=== PATIENT | female | born 1955 | race Caucasian/White ===

== ENCOUNTER 2016-08-25 08:00 | Outpatient (CLI) | payer BC | END 2016-08-25 08:01 | disposition home or self-care (01) | DX: E11.9 Type 2 diabetes mellitus without complications (principal); E78.4 Other hyperlipidemia; E55.9 Vitamin D deficiency, unspecified; Z79.899 Other long term (current) drug therapy ==

== ENCOUNTER 2016-12-17 13:59 | Outpatient (CLI) | payer BC | END 2016-12-17 14:00 | disposition home or self-care (01) | DX: Z12.31 Encounter for screening mammogram for malignant neoplasm of breast (principal) ==

== ENCOUNTER 2017-08-27 12:53 | Outpatient (CLI) | payer BC ==
--- NOTE | 2017-08-27 15:40 | XRAY Report ---
DATE OF SERVICE: 08/27/2017 THREE VIEW LUMBAR SPINE: 08/27/2017 CLINICAL INDICATION: Pain. COMPARISON: 04/13/2016. FINDINGS: AP, lateral, coned down views of the lumbar spine demonstrate stable degenerative changes. There is degenerative anterolisthesis of L4 on L5 by approximately 5 mm. There is no evidence of interval compression fracture. Postoperative changes in the abdomen are noted. The bowel gas pattern is unremarkable. IMPRESSION: MODERATE DEGENERATIVE CHANGES, WITH DEGENERATIVE ANTEROLISTHESIS OF L4 ON L5 BY 5 MM. NO EVIDENCE OF INTERVAL FRACTURE. TD: 08/27/2017 16:39
--- NOTE | 2017-08-27 15:42 | XRAY Report ---
DATE OF SERVICE: 08/27/2017 LEFT HIP AND PELVIS: 08/27/2017 CLINICAL INDICATION: Left hip pain. COMPARISON: 04/13/2016. FINDINGS: Frontal view of the hips and pelvis and frogleg lateral view of the left hip demonstrate stable mild osteoarthritis of the left hip. There is no evidence of fracture or dislocation. No radiopaque foreign body is seen in the soft tissues. IMPRESSION: STABLE MILD LEFT HIP OSTEOARTHRITIS. TD: 08/27/2017 16:41
== END 2017-08-27 12:54 | disposition home or self-care (01) ==
LOC: DI 12:53
PROVIDERS: ATTEND Family Medicine
DX: M54.5 Low back pain (principal); M25.552 Pain in left hip; M16.12 Unilateral primary osteoarthritis, left hip
CPT/HCPCS: 72100

== ENCOUNTER 2018-01-25 12:47 | Outpatient (CLI) | payer BC ==
--- NOTE | 2018-01-26 13:40 | Mammography Report ---
Procedure Date: 01/25/2018 Accession Number: [id number] / [id number] Procedure: GEOVANI - Screening Mammo Dig Bilat CPT Code: FULL RESULT: EXAM: Screening Mammo Dig Bilat DATE: 01/25/2018 1:24 PM CLINICAL HISTORY: 62-year-old with family history of breast cancer for screening COMPARISON: 12/17/2016, 09/05/2015, 07/10/2014, 04/18/2013, 04/22/2012, 03/20/2011, 04/29/2010 TECHNIQUE: Bilateral CC and MLO views were obtained. FINDINGS: The breasts demonstrate diffuse fatty replacement bilaterally. Coarse and punctate, typically benign calcifications are present. No suspicious masses, clustered microcalcifications, or regions of architectural distortion are identified. IMPRESSION: Benign findings RECOMMENDATION: Routine annual screening unless otherwise clinically indicated. BIRADS CATEGORY 2: Benign findings STANDARD QUALIFYING STATEMENTS: 1. This examination was reviewed with the aid of Computer-Aided Detection (CAD). 2. A negative or benign imaging report should not delay biopsy if clinically suspicious findings are present. Consider surgical consultation if warrented. More than 5% of cancers are not identified by imaging. 3. Dense breasts may obscure an underlying neoplasm.
== END 2018-01-25 12:48 | disposition home or self-care (01) ==
LOC: DI 12:47
PROVIDERS: ATTEND Family Medicine
DX: Z12.31 Encounter for screening mammogram for malignant neoplasm of breast (principal); Z80.3 Family history of malignant neoplasm of breast
CPT/HCPCS: 77067

== ENCOUNTER 2019-02-04 16:05 | Outpatient (CLI) | payer SELFPAY | END 2019-02-04 16:06 | disposition EMS.NT | LOC: EMS 16:05 | PROVIDERS: ATTEND Surgery | DX: R45.89 Other symptoms and signs involving emotional state (principal) ==

== ENCOUNTER 2019-02-06 09:57 | Emergency (ER) | payer BC ==
--- NOTE | 2019-02-06 11:05 | ED Physician Documentation ---
PD HPI NVD - Stated complaint Stated Complaint: CONSTIPATION - Chief complaint Chief Complaint: Abd Pain - History obtained from History obtained from: Patient, Family () - History of Present Illness Timing - onset: How many days ago (few days of feeling pressure/pain at rectum with feeling of needing BM. Has had couple of small firm hard stools ("deer turds") at most. No diffuse abd pain.) Timing - duration: Days (has had constipation for several days to a week, with small pellets of hard stool out at a time, with straining. Now with feeling of rectal pain, stool "half out" at rectum, and some traces of red blood with wiping.) Timing - details: Gradual onset Associated symptoms: Abdominal pain (lower abd cramping intermittent. Main pain is at the rectum.), Loss of appetite. No: Fever, Chest pain, Weight loss Contributing factors: No: Sick contact, Bad food, Travel Improved by: BM Worsened by: Eating Similar symptoms before: Diagnosis (constipation) Recently seen: Not recently seen Review of Systems Constitutional: denies: Fever, Chills, Myalgias Nose: denies: Rhinorrhea / runny nose, Congestion Throat: denies: Sore throat Cardiac: denies: Chest pain / pressure Respiratory: denies: Cough GI: reports: Abdominal Pain (lower abd cramping; mostly rectal pain), Nausea, Constipation. denies: Vomiting, Diarrhea : denies: Dysuria, Frequency Musculoskeletal: denies: Neck pain, Back pain Neurologic: reports: Generalized weakness. 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 HEENT: Tonsil/Adenoidectomy - Present Medications Home Medications: Ambulatory Orders Medication Instructions Recorded Confirmed Diazepam [Valium] 10 mg PO PRN 09/10/13 03/06/15 Losartan [Cozaar] 100 mg PO DAILY 09/10/13 03/06/15 Nebivolol HCl [Bystolic] 5 mg PO DAILY 09/10/13 03/06/15 hydroCHLOROthiazide [Hydrodiuril] 25 mg PO DAILY 09/10/13 03/06/15 oxyCODONE/ACET 5/325 [Percocet 5 1 tab PO Q6HR 09/10/13 03/06/15 mg/325 mg] Azithromycin [Zithromax] 250 mg PO ONCE #6 tablet 03/06/15 Docusate Sodium 100 mg PO DAILY #30 capsule 02/06/19 Glycerin Adult Supp [address] DAILY PRN #15 supp 02/06/19 - Allergies Allergies/Adverse Reactions: Allergies Allergy/AdvReac Type Severity Reaction Status Date / Time codeine Allergy Intermediate Itching Verified 02/06/19 10:11 latex Allergy Intermediate Rash Verified 02/06/19 10:11 Penicillins Allergy Intermediate Emesis Verified 02/06/19 10:11 Sulfa (Sulfonamide Allergy Intermediate Emesis Verified 02/06/19 10:11 Antibiotics) eggs Allergy Intermediate Emesis Uncoded 02/06/19 10:11 - Social History Does the pt smoke?: Yes Smoking Status: Current every day smoker Does the pt drink ETOH?: No Does the pt have substance abuse?: No - Immunizations Immunizations are current?: Yes - POLST Patient has POLST: No PD ED PE NORMAL - Vitals Vital signs reviewed: Yes - General General: Alert and oriented X 3, Well developed/nourished, Other (appears very uncomfortable. Initially sitting in bathroom, grunting hard for BM to no avail. ) - Neck Neck: Supple, no meningeal sign, No adenopathy - Cardiac Cardiac: RRR, No murmur - Respiratory Respiratory: Clear bilaterally - Abdomen Abdomen: Soft, Non distended, No organomegaly, Other. No: Normal bowel sounds (increased) - Female Female : Deferred - Rectal Rectal: Other (rectal showing baseball sized impaction of hard stool from rectum. Some trace of red mucous along edge of rectum. ) - Back Back: No CVA TTP - Derm Derm: Normal color, Warm and dry - Extremities Extremities: No tenderness to palpate, Normal ROM s pain, No edema, No calf tenderness / cord - Neuro Neuro: Alert and oriented X 3, No motor deficit, Normal speech Results - Vitals Vitals: Vital Signs - 24 hr 02/06/19 02/06/19 02/06/19 10:07 12:04 13:57 Temperature 36.9 C Heart Rate 88 70 73 Respiratory 18 15 13 Rate Blood Pressure 138/81 H 133/83 H 129/81 H O2 Saturation 100 100 100 Oxygen O2 Source Room air - Labs Labs: Laboratory Tests 02/06/19 02/06/19 11:26 11:26 WBC 5.2 RBC 4.97 Hgb 15.4 Hct 47.2 H MCV 95.0 MCH 31.0 MCHC 32.6 RDW 12.2 Plt Count 142 MPV 10.4 Neut # (Auto) 4.0 Lymph # (Auto) 1.0 L [place] # (Auto) 0.2 Eos # (Auto) 0.0 Baso # (Auto) 0.0 Absolute Nucleated RBC 0.00 Nucleated RBC % 0.0 Sodium 137 Potassium 4.0 Chloride 99 L Carbon Dioxide 24 Anion Gap 14.0 H BUN 22 H Creatinine 0.8 Estimated GFR (MDRD) 73 L Glucose 179 H Calcium 9.8 Total Bilirubin 0.9 AST 32 ALT 28 Alkaline Phosphatase 44 Total Protein 7.3 Albumin 4.5 Globulin 2.8 Albumin/Globulin Ratio 1.6 Lipase 28 PD MEDICAL DECISION MAKING - ED course Complexity details: considered differential (digital disimpaction of hard stool in vault, was uncomfortable, but she feels much better with it out. Enema done to soften stool up higher, though not much stool out further in ER. Also given mag citrate. Discharged home wiht nontender abd exam, feeling improved rectal pain, and predict will have further BMs at home. ), d/w patient Departure - Departure Disposition: 01 Home, Self Care Clinical Impression: Fecal impaction in rectum Constipation Qualifiers: Constipation type: slow transit constipation Qualified Code(s): K59.01 - Slow transit constipation Condition: Stable Record reviewed to determine appropriate education?: Yes Instructions: ED Constipation Follow-Up: Clement Young MD [Primary Care Provider] - Prescriptions: Docusate Sodium 100 mg PO DAILY #30 capsule Glycerin Adult Supp [address] DAILY PRN #15 supp PRN Reason: Constipation Comments: Stay well-hydrated. Use docusate stool softener once or twice daily for the next several days to week. If you do feel there is stool at the rectum area again, use a glycerin suppository and see if that helps soften it to get it out. Recheck if recurrent problems. Discharge Date/Time: 02/06/19 14:15
[2019-02-06] MEDS ORDERED: MORPHINE 2 MG/ML CARPUJECT IVP STA (11:26)
[2019-02-06] MEDS ORDERED: MINERAL OIL ENEMA 133 ML BOTTLE RC STA (11:26)
[2019-02-06] MEDS ORDERED: KETOROLAC 15 MG/ML VIAL IVP STA (11:26)
[2019-02-06] MEDS ORDERED: MAGNESIUM CITRATE 296 ML BOTTLE PO STA (11:26)
[2019-02-06] MEDS ORDERED: SODIUM CHLORIDE 0.9% 1,000 ML IV ONE (11:26)
[2019-02-06 12:07] LABS: BASOPHILS % (AUTO) 0.4 %; EOSINOPHILS % (AUTO) 0.4 %; HGB - HEMOGLOBIN 15.4 g/dL (12.0-16.0); LYMPHOCYTES % (AUTO) 18.5 %; MEAN CORPUSCULAR HGB CONC 32.6 g/dL (32.0-36.0); MEAN PLATELET VOLUME 10.4 fL (7.9-10.8); MONOCYTES # (AUTO) 0.2 10^3/uL (0.0-1.0); MONOCYTES % (AUTO) 3.1 %; NEUTROPHILS % (AUTO) 77.2 %; PLT - PLATELET COUNT 142 10^3/uL (130-450); RED BLOOD COUNT 4.97 10^6/uL (4.20-5.40); RED CELL DISTRIBUTION WIDTH 12.2 % (12.0-15.0); WHITE BLOOD COUNT 5.2 x10^3/uL (4.8-10.8)
[2019-02-06 12:23] LABS: ALBUMIN 4.5 g/dL (3.2-5.5); ALBUMIN/GLOBULIN RATIO 1.6 (1.0-2.2); BILIRUBIN,TOTAL 0.9 mg/dL (0.2-1.0); CALCIUM 9.8 mg/dL (8.5-10.3); CREATININE 0.8 mg/dL (0.4-1.0); TOTAL PROTEIN 7.3 g/dL (6.7-8.2)
[2019-02-06 13:58] VITALS: BP 129/81
== END 2019-02-06 14:15 | disposition home or self-care (01) ==
LOC: ED 09:57
DX: K59.01 Slow transit constipation (principal); I10 Essential (primary) hypertension; F17.200 Nicotine dependence, unspecified, uncomplicated
CPT/HCPCS: 36415; 80053; 83690; 85025; 96361; 96374; 99283; A9270

== ENCOUNTER 2020-06-13 12:32 | Outpatient (CLI) | payer BC ==
--- NOTE | 2020-06-20 15:49 | Mammography Report ---
BILATERAL DIGITAL SCREENING MAMMOGRAM 3D/2D: 06/13/2020 CLINICAL: Routine screening. Comparison is made to exams dated: 01/25/2018 mammogram, 12/17/2016 mammogram, 09/05/2015 mammogram, mammogram, and 04/18/2013 mammogram - [facility]. The tissue of both breasts is predominantly fatty. There is a 1.3 cm oval equal density focal asymmetry with a circumscribed margin which appears to be within the skin of the left breast at 8 o'clock. This is increased in size. No other significant masses, calcifications, or other findings are seen in either breast. IMPRESSION: INCOMPLETE: NEEDS ADDITIONAL IMAGING EVALUATION The 1.3 cm oval focal asymmetry which appears to be within the skin of the left breast is increasing in size. This resembles a sebaceous cyst or mole and is indeterminate. Skin malignancy or breast neop lasm felt to be less likely. Additional views with possible ultrasound are recommended. This exam was interpreted at Station ID: [id number]. NOTE: For mammograms, a report in lay terms will be sent to the patient. Approximately 15% of breast malignancies will not be visualized mammographically. In the management of a palpable breast mass, a negative mammogram must not discourage biopsy of a clinically suspicious lesion. Electronically Signed By: Nadir Power M.D. slc/:06/20/2020 10:48:07 ACR BI-RADS Category 0: Incomplete 3340F PARENCHYMAL PATTERN: (F) - The breast(s) demonstrate(s) diffuse fatty replacement. BI-RADS CATEGORY: (0) - 0 Mammo and US [id number] Immediate follow-up LATERALITY: (B)
== END 2020-06-13 12:33 | disposition home or self-care (01) ==
LOC: DI.N 12:32
PROVIDERS: ATTEND Family Medicine
DX: Z12.31 Encounter for screening mammogram for malignant neoplasm of breast (principal); N64.89 Other specified disorders of breast
CPT/HCPCS: 77063; 77067

== ENCOUNTER 2020-10-07 11:24 | Outpatient (CLI) | payer BC ==
--- NOTE | 2020-10-08 13:38 | Mammography Report ---
UNILATERAL LEFT DIGITAL DIAGNOSTIC MAMMOGRAM 3D/2D: 10/07/2020 CLINICAL: Additional evaluation requested from prior study. Short term follow up for the left breast. Comparison is made to exams dated: 06/13/2020 mammogram, 01/25/2018 mammogram, 12/17/2016 mammogram, mammogram, 07/10/2014 mammogram, and 04/18/2013 mammogram - [facility]. The tissue of left breast is predominantly fatty. Redemonstration of previously described 1.3 cm oval high density focal asymmetry with a circumscribed margin within the skin of the left breast at 8 o'clock. This is confirmed on today's additional vie ws. No other significant masses or calcifications are seen in the breast. IMPRESSION: BENIGN The 1.3 cm oval high density focal asymmetry within the left breast is consistent with a skin lesion and is benign. It appears to be an enlarged sebaceous cyst on exam. Recommend clinical follow up o f this skin lesion. There is no mammographic evidence of malignancy. A 1 year screening mammogram is recommended. Findings and recommendations were conveyed to the patient during today's evaluation. This exam was interpreted at Station ID: [id number]. NOTE: For mammograms, a report in lay terms will be sent to the patient. Approximately 15% of breast malignancies will not be visualized mammographically. In the management of a palpable breast mass, a negative mammogram must not discourage biopsy of a clinically suspicious lesion. Electronically Signed By: Toney Flores M.D. aty/:10/07/2020 12:09:36 ACR BI-RADS Category 2: Benign Finding(s) 3342F PARENCHYMAL PATTERN: (F) - The breast(s) demonstrate(s) diffuse fatty replacement. BI-RADS CATEGORY: (2) - 2 RECOMMENDATION: (ANNUAL) - Recommend routine annual screening mammography. [id number] 1 year screening LATERALITY: (B)
== END 2020-10-07 11:25 | disposition home or self-care (01) ==
LOC: DI 11:24
PROVIDERS: ATTEND Family Medicine
DX: R92.8 Other abnormal and inconclusive findings on diagnostic imaging of breast (principal); N64.89 Other specified disorders of breast

== ENCOUNTER 2020-12-26 03:33 | Outpatient (CLI) | payer BC | END 2020-12-26 03:34 | disposition critical access hospital (66) | LOC: EMS 03:33 | DX: R47.81 Slurred speech (principal); R29.810 Facial weakness; R29.91 Unspecified symptoms and signs involving the musculoskeletal system | CPT/HCPCS: A0425; A0429 ==

== ENCOUNTER 2020-12-26 03:49 | Emergency (ER) | payer BC ==
--- NOTE | 2020-12-26 04:13 | ED Physician Documentation ---
History of Present Illness - Stated complaint Stated Complaint: R SIDE WEAKNESS - Chief complaint Chief Complaint: Neuro - History obtained from History obtained from: Patient, EMS - Additonal information Additional information: Patient is brought to the emergency department by EMS for chief complaint of weakness and confusion. The patient apparently was last known to be well around 2200 when she went to bed has been reported to medics that at 3:00 this morning, the patient woke up and seemed unable to get out of bed, due to weakness. The patient has significant right-sided deficits that are residual since CVA in 2018, but is reported to be able to get around the house and mostly do things for herself. There is some question of whether the right-sided deficits are worse tonight versus generalized weakness. The patient states that she is able to use her right hand somewhat, but that she always holds the arm against her body and any flexed position at the elbow. Medics report that in route, the patient has been somewhat confused with repetitive questioning and some answers that are inappropriate to the question asked. Patient states she feels that she is mentally clear. She denies any recent illnesses. No other symptoms besides the weakness. No fever or chills. No chest pain or shortness of breath. No abdominal pain, nausea vomiting, or dysuria. No other complaints at this time. Patient is not sure whether her symptoms are improving or not. Review of Systems Ten Systems: 10 systems reviewed and negative Constitutional: reports: Reviewed and negative Eyes: reports: Reviewed and negative Ears: reports: Reviewed and negative Nose: reports: Reviewed and negative Throat: reports: Reviewed and negative Cardiac: reports: Reviewed and negative Respiratory: reports: Reviewed and negative GI: reports: Reviewed and negative : reports: Reviewed and negative Skin: reports: Reviewed and negative Musculoskeletal: reports: Reviewed and negative Neurologic: reports: Generalized weakness, Focal weakness, Confused Psychiatric: reports: Reviewed and negative Endocrine: reports: Reviewed and negative Immunocompromised: reports: Reviewed and negative PD PAST MEDICAL HISTORY - Past Medical History Cardiovascular: Hypertension Neuro: Other GI: Chronic constipation Psych: Anxiety, Panic attacks Musculoskeletal: Osteoarthritis - Past Surgical History Past Surgical History: Yes 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 HEENT: Tonsil/Adenoidectomy - Present Medications Home Medications: Ambulatory Orders Medication Instructions Recorded Confirmed Diazepam [Valium] 10 mg PO PRN 09/10/13 03/06/15 Losartan [Cozaar] 100 mg PO DAILY 09/10/13 03/06/15 Nebivolol HCl [Bystolic] 5 mg PO DAILY 09/10/13 03/06/15 hydroCHLOROthiazide [Hydrodiuril] 25 mg PO DAILY 09/10/13 03/06/15 oxyCODONE/ACET 5/325 [Percocet 5 1 tab PO Q6HR 09/10/13 03/06/15 mg/325 mg] Azithromycin [Zithromax] 250 mg PO ONCE #6 tablet 03/06/15 Docusate Sodium 100 mg PO DAILY #30 capsule 02/06/19 Glycerin Adult Supp [Glycerin 1 each [place] DAILY PRN #15 supp 02/06/19 Suppository] - Allergies Allergies/Adverse Reactions: Allergies Allergy/AdvReac Type Severity Reaction Status Date / Time codeine Allergy Intermediate Itching Verified 12/26/20 03:55 latex Allergy Intermediate Rash Verified 12/26/20 03:55 Penicillins Allergy Intermediate Emesis Verified 12/26/20 03:55 Sulfa (Sulfonamide Allergy Intermediate Emesis Verified 12/26/20 03:55 Antibiotics) eggs Allergy Intermediate Emesis Uncoded 12/26/20 03:55 - Social History Does the pt smoke?: Yes Smoking Status: Current every day smoker Does the pt drink ETOH?: No Does the pt have substance abuse?: No - Immunizations Immunizations are current?: Yes - POLST Patient has POLST: No PD ED PE NORMAL - Vitals Vital signs reviewed: Yes - General General: No acute distress, Well developed/nourished, Other (Alert and answers questions, but confused.) - HEENT HEENT: Atraumatic, PERRL, EOMI, Moist mucous membranes - Neck Neck: Supple, no meningeal sign - Cardiac Cardiac: RRR, No murmur, Strong equal pulses - Respiratory Respiratory: No respiratory distress, Clear bilaterally - Abdomen Abdomen: Soft, Non tender, Non distended - Derm Derm: Normal color, Warm and dry, No rash - Extremities Extremities: No deformity, No edema - Neuro Neuro: Other - Psych Psych: Normal mood, Normal affect PD ED PE EXPANDED - Free text exam Free text exam: Of the time,Neuro exam: Patient is alert and answers questions appropriately though occasionally displays confusion. There is no obvious aphasia with simple speaking, though reading the sentences and the NIH stroke scale exam is very difficult for the patient. She recognizes at least a couple of words in a sentence but mixes up the order and adds other words to create a completely different sentence. During the last 2 sentences, she simply seems to make up words. R arm unable to straighten, due to spastic weakness. 5- strength RUE vs 5+ strength LUE. RLE drifts, hits bed at 8 seconds. LUE no drift. 5+ strength dorsiflexion bilaterally. NIHSS score=7 Facial Palsy=1 R arm=2 R leg motor drift=2 Language/aphasia=1 Dysarthria=1 Results - Vitals Vitals: Oxygen O2 Source Nasal cannula - EKG (time done) 0517 Rate: Rate (enter#) (69) Rhythm: NSR, Normal P waves [place]: Normal Intervals: Normal NV, Other (IVCD) QRS: Normal Ischemia: Normal ST segments. No: T wave inversion Compare to prior EKG: Old EKG unavailable Computer interpretation: Agree with computer - Labs Labs: Laboratory Tests 12/26/20 12/26/20 12/26/20 05:33 05:33 05:33 WBC 3.8 L RBC 4.71 Hgb 15.3 Hct 44.0 MCV 93.4 MCH 32.5 H MCHC 34.8 RDW 12.3 Plt Count 151 MPV 9.7 Neut # (Auto) 1.7 Lymph # (Auto) 1.7 [place] # (Auto) 0.3 Eos # (Auto) 0.1 Baso # (Auto) 0.0 Absolute Nucleated RBC 0.00 Nucleated RBC % 0.0 PT 11.2 INR 1.0 Sodium 131 L Potassium 3.9 Chloride 97 L Carbon Dioxide 25 Anion Gap 9.0 BUN 9 Creatinine 0.6 Estimated GFR (MDRD) 101 Glucose 132 H Calcium 9.7 Total Bilirubin 0.5 AST 21 ALT 16 Alkaline Phosphatase 52 Troponin I High Sens Total Protein 6.8 Albumin 4.0 Globulin 2.8 Albumin/Globulin Ratio 1.4 Lipase 35 Urine Color Urine Clarity Urine pH Ur Specific [place] Urine Protein Urine Glucose (UA) Urine Ketones Urine Occult Blood Urine Nitrite Urine Bilirubin Urine Urobilinogen Ur Leukocyte Esterase Ur Microscopic Review Urine Culture Comments Nasal Adenovirus (PCR) Nasal B. parapertussis DNA (PCR) Nasal Coronavir 229E PCR Nasal Coronavir HKU1 PCR Nasal Coronavir NL63 PCR Nasal Coronavir OC43 PCR Nasal Enterovir/Rhinovir PCR Nasal Influenza B PCR Nasal Influenza A PCR Nasal Parainfluen 1 PCR Nasal Parainfluen 2 PCR Nasal Parainfluen 3 PCR Nasal Parainfluen 4 PCR Nasal RSV (PCR) Nasal B.pertussis DNA PCR Nasal C.pneumoniae (PCR) Navdeep Human Metapneumo PCR Nasal M.pneumoniae (PCR) Nasal SARS-CoV-2 (PCR) 12/26/20 12/26/20 12/26/20 05:33 06:02 11:05 WBC RBC Hgb Hct MCV MCH MCHC RDW Plt Count MPV Neut # (Auto) Lymph # (Auto) [place] # (Auto) Eos # (Auto) Baso # (Auto) Absolute Nucleated RBC Nucleated RBC % PT INR Sodium Potassium Chloride Carbon Dioxide Anion Gap BUN Creatinine Estimated GFR (MDRD) Glucose Calcium Total Bilirubin AST ALT Alkaline Phosphatase Troponin I High Sens < 2.3 L Total Protein Albumin Globulin Albumin/Globulin Ratio Lipase Urine Color STRAW Urine Clarity CLEAR Urine pH 7.0 Ur Specific [place] <=1.005 Urine Protein NEGATIVE Urine Glucose (UA) NEGATIVE Urine Ketones NEGATIVE Urine Occult Blood TRACE-INTA Urine Nitrite NEGATIVE Urine Bilirubin NEGATIVE Urine Urobilinogen 0.2 (NORMAL) Ur Leukocyte Esterase NEGATIVE Ur Microscopic Review NOT INDICATED Urine Culture Comments NOT INDICATED Nasal Adenovirus (PCR) NOT DETECTED Nasal B. parapertussis DNA (PCR) NOT DETECTED Nasal Coronavir 229E PCR NOT DETECTED Nasal Coronavir HKU1 PCR NOT DETECTED Nasal Coronavir NL63 PCR NOT DETECTED Nasal Coronavir OC43 PCR NOT DETECTED Nasal Enterovir/Rhinovir PCR NOT DETECTED Nasal Influenza B PCR NOT DETECTED Nasal Influenza A PCR NOT DETECTED Nasal Parainfluen 1 PCR NOT DETECTED Nasal Parainfluen 2 PCR NOT DETECTED Nasal Parainfluen 3 PCR NOT DETECTED Nasal Parainfluen 4 PCR NOT DETECTED Nasal RSV (PCR) NOT DETECTED Nasal B.pertussis DNA PCR NOT DETECTED Nasal C.pneumoniae (PCR) NOT DETECTED Navdeep Human Metapneumo PCR NOT DETECTED Nasal M.pneumoniae (PCR) NOT DETECTED Nasal SARS-CoV-2 (PCR) NOT DETECTED - Rads (name of study) CT head noncon Radiology: Final report received, EMP read indepedently, See rad report (old L MCA stroke; NAD) PD MEDICAL DECISION MAKING - ED course Complexity details: reviewed old records, reviewed results, re-evaluated patient, considered differential, d/w patient ED course: Patient was sent for noncontrast head CT stroke protocol, which showed a remote left MCA infarct but no acute intracranial infarct or hemorrhage. While CTA was being done, I spoke with Dr. Lizarraga of telestroke, and he stated the patient would not be a TPA candidate, and that unless the patient had a large vessel occlusion on CTA, he did not need to evaluate the patient by video. In this case, he recommended patient be worked up with MRI and potentially observed in the hospital. Patient was given a dose of aspirin. CTA showed potential obstruction of the left MCA, and as such, the patient was evaluated by Dr. Lizarraga. The patient was not a very clear historian, and was somewhat obstructed with answering questions. She ultimately stated that she did not Him's were any different than usual, and that she was to be left alone. At this point in time, I did speak with the neurologist privately, and he stated that the nature of this patient's symptoms did not indicate an acute MCA occlusion. However, since the patient has been somewhat unclear with regard to her symptoms, we have summoned her to come to the emergency department to pry provide some clarity. If the feels strongly that the patient is not at her baseline, then neurology may reconsider transfer of the patient if the patient is agreeable. At this point in time, the patient was signed out to Dr. Villalpando, pending 's report and final disposition. Departure - Departure Disposition: 07 Against Medical Advice Clinical Impression: Stroke-like symptoms, Dehydration Condition: Stable Instructions: ED Dehydration, ED Transient Ischemic Attack Follow-Up: Clement Young MD [Physician No Access] - Discharge Date/Time: 12/26/20 12:46
[2020-12-26] MEDS ORDERED: IOPAMIDOL-300 100 ML VIAL IVP ONE (05:16)
[2020-12-26] MEDS ORDERED: ASPIRIN CHEW 81 MG TABLET PO STA (05:28)
[2020-12-26] MEDS ORDERED: IOPAMIDOL-300 100 ML VIAL ONE (05:34)
[2020-12-26 05:40] LABS: BASOPHILS % (AUTO) 0.8 %; EOSINOPHILS # (AUTO) 0.1 10^3/uL (0.0-0.7); EOSINOPHILS % (AUTO) 1.9 %; HGB - HEMOGLOBIN 15.3 g/dL (12.0-16.0); LYMPHOCYTES # (AUTO) 1.7 10^3/uL (1.5-3.5); LYMPHOCYTES % (AUTO) 44.9 %; MEAN CORPUSCULAR HEMOGLOBIN 32.5 pg (27.0-31.0); MEAN CORPUSCULAR HGB CONC 34.8 g/dL (32.0-36.0); MEAN CORPUSCULAR VOLUME 93.4 fL (81.0-99.0); MEAN PLATELET VOLUME 9.7 fL (7.9-10.8); MONOCYTES # (AUTO) 0.3 10^3/uL (0.0-1.0); MONOCYTES % (AUTO) 7.4 %; NEUTROPHILS # (AUTO) 1.7 10^3/uL (1.5-6.6); PLT - PLATELET COUNT 151 10^3/uL (130-450); RED BLOOD COUNT 4.71 10^6/uL (4.20-5.40); RED CELL DISTRIBUTION WIDTH 12.3 % (12.0-15.0); WHITE BLOOD COUNT 3.8 x10^3/uL (4.8-10.8)
[2020-12-26 05:44] LABS: PT - PROTHROMBIN TIME 11.2 secs (9.9-12.6)
[2020-12-26 05:52] LABS: ALBUMIN/GLOBULIN RATIO 1.4 (1.0-2.2); BILIRUBIN,TOTAL 0.5 mg/dL (0.2-1.0); CALCIUM 9.7 mg/dL (8.5-10.3); CREATININE 0.6 mg/dL (0.4-1.0); POTASSIUM 3.9 mmol/L (3.5-5.0); TOTAL PROTEIN 6.8 g/dL (6.7-8.2)
[2020-12-26] MEDS ORDERED: SODIUM CHLORIDE 0.9% 1,000 ML IV STA (06:49)
--- NOTE | 2020-12-26 06:50 | ED Physician Documentation ---
PD HPI FOCAL NEURO - Stated complaint Stated Complaint: R SIDE WEAKNESS - Chief complaint Chief Complaint: Neuro - History obtained from History obtained from: Patient, Family - History of Present Illness Timing - onset: Enter time (299), Today Timing - duration: Hours Timing - details: Abrupt onset, Still present Severity of deficit: Moderate Weakness: Arm, Hand, Leg, Foot, Right Associated symptoms: Nausea / vomiting Contributing factors: positive: Vascular dz Baseline status: positive: Walker, Mildly confused Similar symptoms before: Diagnosis (CVA) Recently seen: Not recently seen - Additional information Additional information: 65-year-old female with a 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 She is usually able to get herself out of bed and go to the bathroom and get back into bed. She is usually conversant. This morning at 3 AM her noted her to be grunting and he went to assist with her he was able to help her up but she was not able to complete this task. The ambulance was summoned and the patient was transported the hospital and work-up was ensued including CTA of the head and neck. At shift change care of the patient is turned over to me by Dr. Shrestha. 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: Hysterectomy HEENT: Tonsil/Adenoidectomy - Present Medications Home Medications: Ambulatory Orders Medication Instructions Recorded Confirmed Diazepam [Valium] 10 mg PO PRN 09/10/13 03/06/15 Losartan [Cozaar] 100 mg PO DAILY 09/10/13 03/06/15 Nebivolol HCl [Bystolic] 5 mg PO DAILY 09/10/13 03/06/15 hydroCHLOROthiazide [Hydrodiuril] 25 mg PO DAILY 09/10/13 03/06/15 oxyCODONE/ACET 5/325 [Percocet 5 1 tab PO Q6HR 09/10/13 03/06/15 mg/325 mg] Azithromycin [Zithromax] 250 mg PO ONCE #6 tablet 03/06/15 Docusate Sodium 100 mg PO DAILY #30 capsule 02/06/19 Glycerin Adult Supp [Glycerin 1 each RI DAILY PRN #15 supp 02/06/19 Suppository] - Allergies Allergies/Adverse Reactions: Allergies Allergy/AdvReac Type Severity Reaction Status Date / Time codeine Allergy Intermediate Itching Verified 12/26/20 03:55 latex Allergy Intermediate Rash Verified 12/26/20 03:55 Penicillins Allergy Intermediate Emesis Verified 12/26/20 03:55 Sulfa (Sulfonamide Allergy Intermediate Emesis Verified 12/26/20 03:55 Antibiotics) eggs Allergy Intermediate Emesis Uncoded 12/26/20 03:55 - Social History Does the pt smoke?: Yes Smoking Status: Current every day smoker Does the pt drink ETOH?: No Does the pt have substance abuse?: No - Immunizations Immunizations are current?: Yes - POLST Patient has POLST: No PD ED PE NORMAL - Vitals Vital signs reviewed: Yes (Hypertensive) - General General: No acute distress, Well developed/nourished - HEENT HEENT: Atraumatic, PERRL - Respiratory Respiratory: No respiratory distress - Derm Derm: Normal color, Warm and dry, No rash NIHSS - Level of Consciousness Level of consciousness: (0) Alert, Keenly responsive LOC Questions: (0) Answers both Q's correct LOC Commands: (0) Performs both correctly - Gaze Best Gaze: (0) Normal - Visual Visual: (0) No loss - Facial Palsy Facial Palsy: (0) Normal, symmetrical movement - Motor Arms (both separate) Motor Arm (right): (1) Drift Motor Arm (left): (0) No drift - Motor Legs (both separate) Motor Leg (right): (1) Drift Motor Leg (left): (0) No drift - Limb Ataxia Limb Ataxia: (0) Absent - Sensory Sensory: (0) Normal - Best Language Best Language: (0) No aphasia - Dysarthria Dysarthria: (1) [id number] dysarthria - Extinction and Inattention (formally neg Extinction and inattention: (0) No abnormality - Total Score/Results Total Score/Result: 3 Results - Vitals Vitals: Vital Signs - 24 hr 12/26/20 12/26/20 12/26/20 04:03 05:23 05:30 Temperature 36.2 C L Heart Rate 59 L 67 63 Respiratory 18 16 19 Rate Blood Pressure 138/80 H 156/100 H 139/85 H O2 Saturation 98 99 97 12/26/20 12/26/20 12/26/20 06:01 06:30 07:00 Temperature Heart Rate 61 63 62 Respiratory 16 16 18 Rate Blood Pressure 131/52 H 119/98 H 124/80 O2 Saturation 97 99 96 12/26/20 12/26/20 12/26/20 07:30 08:00 08:30 Temperature 36.5 C Heart Rate 63 57 L 65 Respiratory 17 17 18 Rate Blood Pressure 130/77 142/86 H 132/84 H O2 Saturation 98 99 99 12/26/20 12/26/20 12/26/20 09:00 09:30 10:00 Temperature 36.5 C 36.5 C Heart Rate 66 63 63 Respiratory 20 16 16 Rate Blood Pressure 139/93 H 138/86 H 152/102 H O2 Saturation 98 97 97 12/26/20 12/26/20 12/26/20 10:30 11:00 11:30 Temperature 36.6 C 36.7 C 36.7 C Heart Rate 62 60 60 Respiratory 16 16 16 Rate Blood Pressure 150/89 H 140/89 H 134/87 H O2 Saturation 98 99 99 12/26/20 12:37 Temperature 36.5 C Heart Rate 62 Respiratory 19 Rate Blood Pressure 145/100 H O2 Saturation 100 Oxygen O2 Source Nasal cannula - Labs Labs: Laboratory Tests 12/26/20 12/26/20 12/26/20 05:33 05:33 05:33 WBC 3.8 L RBC 4.71 Hgb 15.3 Hct 44.0 MCV 93.4 MCH 32.5 H MCHC 34.8 RDW 12.3 Plt Count 151 MPV 9.7 Neut # (Auto) 1.7 Lymph # (Auto) 1.7 [place] # (Auto) 0.3 Eos # (Auto) 0.1 Baso # (Auto) 0.0 Absolute Nucleated RBC 0.00 Nucleated RBC % 0.0 PT 11.2 INR 1.0 Sodium 131 L Potassium 3.9 Chloride 97 L Carbon Dioxide 25 Anion Gap 9.0 BUN 9 Creatinine 0.6 Estimated GFR (MDRD) 101 Glucose 132 H Calcium 9.7 Total Bilirubin 0.5 AST 21 ALT 16 Alkaline Phosphatase 52 Troponin I High Sens Total Protein 6.8 Albumin 4.0 Globulin 2.8 Albumin/Globulin Ratio 1.4 Lipase 35 Urine Color Urine Clarity Urine pH Ur Specific [place] Urine Protein Urine Glucose (UA) Urine Ketones Urine Occult Blood Urine Nitrite Urine Bilirubin Urine Urobilinogen Ur Leukocyte Esterase Ur Microscopic Review Urine Culture Comments Nasal Adenovirus (PCR) Nasal B. parapertussis DNA (PCR) Nasal Coronavir 229E PCR Nasal Coronavir HKU1 PCR Nasal Coronavir NL63 PCR Nasal Coronavir OC43 PCR Nasal Enterovir/Rhinovir PCR Nasal Influenza B PCR Nasal Influenza A PCR Nasal Parainfluen 1 PCR Nasal Parainfluen 2 PCR Nasal Parainfluen 3 PCR Nasal Parainfluen 4 PCR Nasal RSV (PCR) Nasal B.pertussis DNA PCR Nasal C.pneumoniae (PCR) Nav[place] Human Metapneumo PCR Nasal M.pneumoniae (PCR) Nasal SARS-CoV-2 (PCR) 12/26/20 12/26/20 12/26/20 05:33 06:02 11:05 WBC RBC Hgb Hct MCV MCH MCHC RDW Plt Count MPV Neut # (Auto) Lymph # (Auto) [place] # (Auto) Eos # (Auto) Baso # (Auto) Absolute Nucleated RBC Nucleated RBC % PT INR Sodium Potassium Chloride Carbon Dioxide Anion Gap BUN Creatinine Estimated GFR (MDRD) Glucose Calcium Total Bilirubin AST ALT Alkaline Phosphatase Troponin I High Sens < 2.3 L Total Protein Albumin Globulin Albumin/Globulin Ratio Lipase Urine Color STRAW Urine Clarity CLEAR Urine pH 7.0 Ur Specific [place] <=1.005 Urine Protein NEGATIVE Urine Glucose (UA) NEGATIVE Urine Ketones NEGATIVE Urine Occult Blood TRACE-INTA Urine Nitrite NEGATIVE Urine Bilirubin NEGATIVE Urine Urobilinogen 0.2 (NORMAL) Ur Leukocyte Esterase NEGATIVE Ur Microscopic Review NOT INDICATED Urine Culture Comments NOT INDICATED Nasal Adenovirus (PCR) NOT DETECTED Nasal B. parapertussis DNA (PCR) NOT DETECTED Nasal Coronavir 229E PCR NOT DETECTED Nasal Coronavir HKU1 PCR NOT DETECTED Nasal Coronavir NL63 PCR NOT DETECTED Nasal Coronavir OC43 PCR NOT DETECTED Nasal Enterovir/Rhinovir PCR NOT DETECTED Nasal Influenza B PCR NOT DETECTED Nasal Influenza A PCR NOT DETECTED Nasal Parainfluen 1 PCR NOT DETECTED Nasal Parainfluen 2 PCR NOT DETECTED Nasal Parainfluen 3 PCR NOT DETECTED Nasal Parainfluen 4 PCR NOT DETECTED Nasal RSV (PCR) NOT DETECTED Nasal B.pertussis DNA PCR NOT DETECTED Nasal C.pneumoniae (PCR) NOT DETECTED Navdeep Human Metapneumo PCR NOT DETECTED Nasal M.pneumoniae (PCR) NOT DETECTED Nasal SARS-CoV-2 (PCR) NOT DETECTED - Rads (name of study) CTA head Radiology: Prelim report reviewed (Impression: 1. Abrupt cut off the proximal M1 segment of the left there is an old left MCA infarct with collateralized flow in this region but a more proximal acute occlusive thrombus cannot be excluded.), Final report received (No intracranial aneurysm or AVM. Unremarkable CT enhancement of the brain parenchyma. Old left frontal MCA infarct.), EMP read indepedently, See rad report CTA neck Radiology: Prelim report reviewed (Impression: 1. There is an 80% stenosis of the right common carotid bifurcation and proximal right internal carotid artery based on NASCET criteriaThere is 70% stenosis of the left common carotid artery bifurcation and proximal left internal carotid artery), Final report received (3.Wide patency of the cervical vertebral arteries 4. degenerative spondylolysis) Procedures - IVC sono (time) 0667 Bedside IVC sono: IVC measures (cm) (0.78), IVC collapsed c insp (cm) (complete), Dehydration (est >2 liter deficit) PD MEDICAL DECISION MAKING - ED course ED course: 65-year-old female with a prior right CVA with residual right deficit has come to the emergency department she was found to be dehydrated she had worsening of her stroke symptoms we hydrated the patient she improved and we made arrangements for her to go to [facility] to get MRI and further work-up and she signed out AGAINST MEDICAL ADVICE. Her level of improvement was substantial and the patient appeared to be able to make her own decisions. Her was in agreement with her decision. Departure - Departure Disposition: Against Medical Advice Clinical Impression: Stroke-like symptoms, Dehydration Condition: Stable Instructions: ED Dehydration, ED Transient Ischemic Attack Follow-Up: Clement Young MD [Physician No Access] - Discharge Date/Time: 12/26/20 12:46
[2020-12-26 06:58] LABS: B. PARAPERTUSSIS- RESP PCR PAN NOT DETECTED; B. PERTUSSIS- RESP PCR PANEL NOT DETECTED; C. PNEUMONIAE- RESP PCR PANEL NOT DETECTED; CORONAVIRUS 229E-RESP PCR NOT DETECTED; CORONAVIRUS HKU1-RESP PCR NOT DETECTED; CORONAVIRUS NL63-RESP PCR NOT DETECTED; CORONAVIRUS OC43-RESP PCR NOT DETECTED; HUMAN METAPNEUMOVIRUS NOT DETECTED; INFLUENZA A- RESP PCR PANEL NOT DETECTED; INFLUENZA B - RESP PCR PANEL NOT DETECTED; M. PNEUMONIAE- RESP PCR PANEL NOT DETECTED; PARAINFLUENZA VIRUS 1 NOT DETECTED; PARAINFLUENZA VIRUS 2 NOT DETECTED; PARAINFLUENZA VIRUS 3 NOT DETECTED; PARAINFLUENZA VIRUS 4 NOT DETECTED; RHINOVIRUS/ENTEROVIRUS NOT DETECTED; RSV- RESP PCR PANEL NOT DETECTED; SARS-CoV-2 -RESP PCR PANEL NOT DETECTED
--- NOTE | 2020-12-26 08:01 | CT Report ---
PROCEDURE: Head W/O Stroke Protocol INDICATIONS: Neuro deficit, acute, stroke suspected TECHNIQUE: Noncontrast 4.5 mm thick angled axial sections acquired from the foramen magnum to the vertex, with c oronal reformats. For radiation dose reduction, the following was used: automated exposure control, adjustment of mA and/or kV according to patient size. COMPARISON: FINDINGS: Image quality: Excellent. The ventricular system and cortical sulci demonstrate atrophy, consistent for patient's stated age. There are areas of hypodensity in the periventricular and subcortical white matter. There is no acut e intra or extra-axial fluid collection. Consolidation is present in the left frontal temporal lobe consistent with old left middle cerebral artery infarction. No acute hemorrhage, mass lesion or midli ne shift. Brainstem is unremarkable. Globes are symmetrical. Sinuses are aerated. Osseous structures are intact. IMPRESSION: 1. Old left middle cerebral artery infarction. No acute superimposed intracranial process is identifi ed. 2. Atrophy and chronic microvascular ischemic changes are present. The above findings are concordant with preliminary report. This study fulfills neurological imaging criteria for inclusion or exclusion of acute stroke therapie s based on available published neurological imaging guidelines. Reviewed by: Tashia Dudley MD on 12/26/2020 7:59 AM PDT Approved by: Tashia Dudley MD on 12/26/2020 7:59 AM PDT Station ID: [id number]
[2020-12-26 11:21] LABS: BILIRUBIN,URINE NEGATIVE (NEGATIVE); GLUCOSE, URINE (UA) NEGATIVE (NEGATIVE); KETONES,URINE (UA) NEGATIVE (NEGATIVE); LEUKOCYTE ESTERASE, URINE NEGATIVE (NEGATIVE); NITRITE,URINE NEGATIVE (NEGATIVE); OCCULT BLOOD,URINE TRACE-INTA (NEGATIVE); PROTEIN,URINE NEGATIVE (NEGATIVE); UROBILINOGEN,URINE 0.2 (NORMAL) E.U./dL (NORMAL)
[2020-12-26 11:24] LABS: CLARITY,URINE CLEAR (CLEAR)
--- NOTE | 2020-12-26 11:53 | CT Report ---
PROCEDURE: ANGIO HEAD W/WO INDICATIONS: confusion, aphasia, R deficit CONTRAST: IV CONTRAST: Isovue 300 ml: 80 PO CONTRAST: *NO PO CONTRAST TECHNIQUE: Precontrast 4.5 mm thick angled axial sections acquired from the foramen magnum to the vertex. Afte r the administration of intravenous contrast, 1 mm thick sections acquired through the [place] of [place] is. Postcontrast 4.5 mm thick sections then re-acquired from the foramen magnum to the vertex. 3-di mensional bruirnz-idihrmqdy-yscrrxdeef (MIP) and/or volume rendering reformats were acquired of the c entral intracranial vasculature. For radiation dose reduction, the following was used: automated ex posure control, adjustment of mA and/or kV according to patient size. COMPARISON: CT brain, CTA head and neck 12/26/2020 FINDINGS: Image quality: Excellent. The ventricular system and cortical sulci are consistent for patient's stated age. There is no acut e intra or extra-axial fluid collection. No acute hemorrhage, mass lesion or midline shift. Old lef t MCA distribution infarction, with encephalomalcia. Brainstem is unremarkable. Globes are symmetri brittany. Sinuses are aerated. Osseous structures are intact. The posterior circulation demonstrates a left vertebral artery dominance. Basilar artery and posterio r cerebral arteries demonstrate no areas of hemodynamically significant stenosis, vascular occlusion or aneurysmal dilation. Posterior communicating arteries are within normal limits. The anterior circulation, including the anterior and right middle cerebral arteries, as well as inter nal carotid arteries demonstrates no areas of hemodynamically significant stenosis, vascular occlusio n or aneurysmal dilation. There is occlusion of the M1 segment of the left middle cerebral artery. Sm all vessel distal collateralization and reconstitution is present within the M2 and M3 segments. It i s noted that the previously identified area of encephalomalacia subsequent to infarction also occurs within the vascular distribution. IMPRESSION: 1. No acute intracranial process. 2. Previous left MCA distribution infarction. 3. There is occlusion of the left M1 segment of the middle cerebral artery. Given distal collateraliz ation it is suspected that this is related to previous infarction within this vascular territory dist ribution. Superimposed subacute ischemia although cannot be definitively excluded is considered less likely. Further evaluation with MRI brain may be obtained as indicated for additional evaluation of a cute/subacute ischemia. Reviewed by: Tashia Dudley MD on 12/26/2020 11:52 AM PDT Approved by: Tashia Dudley MD on 12/26/2020 11:52 AM PDT Station ID: [id number]
--- NOTE | 2020-12-26 12:10 | CT Report ---
PROCEDURE: ANGIO NECK W INDICATIONS: confusion, aphasia, R deficit CONTRAST: IV CONTRAST: Isovue 300 ml: 80 PO CONTRAST: *NO PO CONTRAST TECHNIQUE: After the administration of intravenous contrast, 1.5 mm axial sections acquired from the aortic arch to the [place] of [place]. Coronal 3-D maximum intensity projection (MIP) and/or volume rendering ref ormats were then performed. For radiation dose reduction, the following was used: automated exposur e control, adjustment of mA and/or kV according to patient size. COMPARISON: CT head, CTA brain 12/26/2020 FINDINGS: Image quality: Excellent. There is occlusion of the left M1 segment of the middle cerebral artery with small vessel distal rahul ateralization reconstitution of M2 and M3 segments. Encephalomalacia is present within the M1 vascula r distribution. Calcification is noted the distal aspect of the left common carotid artery. There is significant brittany cification with extends to the origin of the left internal carotid artery with approximately 70-80% s tenosis. Calcification also extends to the origin of the left external carotid artery with stenosis m easuring approximately 60%. Calcification is also noted at the origin of the right common carotid artery. There is at least 80% s tenosis at the origin of the right internal carotid artery. Calcifications are also noted at the orig in of the right external carotid artery with high-grade stenosis, greater than 80%. Origin of the left vertebral artery and right vertebral artery demonstrate no areas of hemodynamicall y significant stenosis, vascular occlusion or aneurysmal dilation. Aortic arch demonstrates conventio nal anatomy. Limited, visualized portions of the subclavian vasculature are unremarkable. IMPRESSION: 1. Left M1 occlusion likely related to prior infarction. Please see CTA head report of 12/26/2020 for further details. 2. High-grade stenosis within the internal carotid arteries bilaterally, 70-80% on the left and at le ast 80% on the right. 3. Bilateral external carotid artery calcifications stenosis, 60% on the left and greater than 80% on the right. The above findings are concordant with preliminary report. The estimate of stenosis included in the report of the imaging study was calculated using the NASCET method Reviewed by: Tashia Dudley MD on 12/26/2020 12:09 PM PDT Approved by: Tashia Dudley MD on 12/26/2020 12:09 PM PDT Station ID: [id number]
[2020-12-26 12:38] VITALS: BP 145/100
== END 2020-12-26 12:46 | disposition left against medical advice (07) ==
LOC: EDUNIT# → EDBD → ED 03:49
DX: E86.0 Dehydration (principal); R53.1 Weakness; R41.0 Disorientation, unspecified; R47.1 Dysarthria and anarthria; I69.351 Hemiplegia and hemiparesis following cerebral infarction affecting right dominant side; I10 Essential (primary) hypertension; Z20.822 Contact with and (suspected) exposure to COVID-19; F17.200 Nicotine dependence, unspecified, uncomplicated; Z53.29 Procedure and treatment not carried out because of patient's decision for other reasons
CPT/HCPCS: 0202U; 36415; 70450; 70496; 70498; 80053; 81003; 83690; 84484; 85025; 85610; 93005; 96360; 96361; 99284; Q9967; 81001; 87086

== ENCOUNTER 2020-12-26 20:45 | Outpatient (CLI) | payer BC | END 2020-12-26 20:46 | disposition home or self-care (01) | LOC: EMS 20:45 | DX: R41.82 Altered mental status, unspecified (principal); R53.1 Weakness; R47.81 Slurred speech | CPT/HCPCS: A0425; A0429 ==

== ENCOUNTER 2021-03-16 16:40 | Emergency (ER) | payer MEDICARE, BC ==
[2021-03-16] MEDS ORDERED: LIDOCAINE 1%-EPI 1:100000 20 ML MDV SUBQ STA (17:51)
[2021-03-16] MEDS ORDERED: CLINDAMYCIN 150 MG CAPSULE PO STA (17:52)
[2021-03-16] MEDS ORDERED: LIDOCAINE 1%-EPI 1:100000 20 ML MDV ONE (17:59)
--- NOTE | 2021-03-16 18:18 | ED Physician Documentation ---
History of Present Illness - Stated complaint Stated Complaint: BOIL ON LT BREAST - Chief complaint Chief Complaint: Wound - History obtained from History obtained from: Patient, Family - History of Present Illness Timing: How many weeks ago (several weeks) Pain level max: 5 Pain level now: 5 - Additonal information Additional information: 65-year-old female presents to the emergency department with swelling and redness to the chest wall. She states similar symptoms several years ago in which it was drained, has now recurred. She never followed up with a surgeon for further evaluation. She now complains that it is swollen and tender. No fevers. Nothing makes it better. 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: Hysterectomy HEENT: Tonsil/Adenoidectomy - Present Medications Home Medications: Ambulatory Orders Medication Instructions Recorded Confirmed Diazepam [Valium] 10 mg PO PRN 09/10/13 03/06/15 Losartan [Cozaar] 100 mg PO DAILY 09/10/13 03/06/15 Nebivolol HCl [Bystolic] 5 mg PO DAILY 09/10/13 03/06/15 hydroCHLOROthiazide [Hydrodiuril] 25 mg PO DAILY 09/10/13 03/06/15 oxyCODONE/ACET 5/325 [Percocet 5 1 tab PO Q6HR 09/10/13 03/06/15 mg/325 mg] Azithromycin [Zithromax] 250 mg PO ONCE #6 tablet 03/06/15 Docusate Sodium 100 mg PO DAILY #30 capsule 02/06/19 Glycerin Adult Supp [Glycerin 1 each [place] DAILY PRN #15 supp 02/06/19 Suppository] clindamycin HCL [Cleocin HCl] 300 mg PO Q6H #40 cap 03/16/21 - Allergies Allergies/Adverse Reactions: Allergies Allergy/AdvReac Type Severity Reaction Status Date / Time codeine Allergy Intermediate Itching Verified 03/16/21 17:24 latex Allergy Intermediate Rash Verified 03/16/21 17:24 Penicillins Allergy Intermediate Emesis Verified 03/16/21 17:24 Sulfa (Sulfonamide Allergy Intermediate Emesis Verified 03/16/21 17:24 Antibiotics) eggs Allergy Intermediate Emesis Uncoded 03/16/21 17:24 - Social History Does the pt smoke?: Yes Smoking Status: Current every day smoker Does the pt drink ETOH?: No Does the pt have substance abuse?: No - Immunizations Immunizations are current?: Yes - POLST Patient has POLST: No PD ED PE NORMAL - Vitals Vital signs reviewed: Yes - General General: Alert and oriented X 3, No acute distress - Cardiac Cardiac: RRR - Respiratory Respiratory: No respiratory distress, Clear bilaterally - Abdomen Abdomen: Soft, Non tender, Non distended - Derm Derm: Warm and dry, Other (3 x 3 cm abscess to the left side of the chest. This is just above the breast. There is swelling and fluctuance. No drainage.) - Neuro Neuro: Alert and oriented X 3 - Psych Psych: Normal mood, Normal affect Results - Vitals Vitals: Oxygen O2 Source Room air - Labs Labs: Microbiology 03/16/21 18:15 Wound Culture - Preliminary Breast - Left Procedures - Abscess I&D (location) Left chest Preparation: Confirmed with ultrasound, Lidocaine 1%, With epi Incision: Incised with scalpel, Purulent drainage, Irrigated, Packed, Culture obtained Other: Pt tolerated well, Dressing applied PD MEDICAL DECISION MAKING - ED course Complexity details: re-evaluated patient, considered differential, d/w patient, d/w family ED course: 65-year-old female with an abscess to the chest wall. This was incised and drained. Tolerated well. Wound culture obtained. Will place on antibiotics for home. We will have her follow-up with surgery after the infection has cleared to remove any further cyst sac as this is a recurrent abscess in the spot. Patient and family counseled regarding signs and symptoms for which I believe and urgent re-evaluation would be necessary. Patient with good understanding of and agreement to plan and is comfortable going home at this time This document was made in part using voice recognition software. While efforts are made to proofread this document, sound alike and grammatical errors may occur. Departure - Departure Disposition: 01 Home, Self Care Clinical Impression: Abscess Condition: Good Instructions: ED Abscess IandD Follow-Up: Clement Young MD [Primary Care Provider] - Within 3 Days Brandon Quezada MD [Provider Admit Priv/Credential] - Prescriptions: clindamycin HCL [Cleocin HCl] 300 mg PO Q6H #40 cap Comments: The abscess was drained today. You will need to have the packing removed and a wound check in about 3 days. This can be done here or with your doctor. After the infection has cleared, you need to follow-up with a surgeon to remove the remaining sac that is likely present as this is been a recurrent issue for you. Take all antibiotics until gone. If you return to the emergency department on Wednesday, Kamini will be here to help take care of you, unfortunately I will not but one of my colleagues will take very good care of you Discharge Date/Time: 03/16/21 18:54
[2021-03-16] MEDS ORDERED: CLINDAMYCIN 150 MG CAPSULE PO ONE (18:22)
[2021-03-16 18:54] VITALS: BP 146/70
== END 2021-03-16 18:54 | disposition home or self-care (01) ==
LOC: ED 16:40
DX: L02.213 Cutaneous abscess of chest wall (principal); F17.200 Nicotine dependence, unspecified, uncomplicated
CPT/HCPCS: 10061; 81599; 87070; 87205; 99283; 99284; A9270

== ENCOUNTER 2021-03-19 16:43 | Emergency (ER) | payer MEDICARE, BC ==
--- NOTE | 2021-03-19 17:40 | ED Physician Documentation ---
History of Present Illness - Stated complaint Stated Complaint: WOUND CHECK - Chief complaint Chief Complaint: Wound - Additonal information Additional information: 65-year-old female presents the emergency department for evaluation of a left breast abscess That was drained 3 days ago by my colleague here in the ER. She has been started on antibiotics. She reports that it continues to drain but she is compliant with the antibiotics and though it is painful it is not more painful than before. There have been no fevers. History is somewhat limited and most of it is obtained from the . Patient does have a history of previous stroke with right-sided deficits. Review of Systems Constitutional: reports: Reviewed and negative Ears: reports: Reviewed and negative Nose: reports: Reviewed and negative Throat: reports: Reviewed and negative Cardiac: reports: Chest pain / pressure Respiratory: reports: Reviewed and negative GI: reports: Reviewed and negative : reports: Reviewed and negative Skin: reports: Lesions PD PAST MEDICAL HISTORY - Past Medical History Cardiovascular: Hypertension Neuro: CVA, Other GI: Chronic constipation Psych: Anxiety, Panic attacks Musculoskeletal: Osteoarthritis, Fibromyalgia - Past Surgical History Past Surgical History: Yes General: 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: Hysterectomy HEENT: Tonsil/Adenoidectomy - Present Medications Home Medications: Ambulatory Orders Medication Instructions Recorded Confirmed Diazepam [Valium] 10 mg PO PRN 09/10/13 03/06/15 Losartan [Cozaar] 100 mg PO DAILY 09/10/13 03/06/15 Nebivolol HCl [Bystolic] 5 mg PO DAILY 09/10/13 03/06/15 hydroCHLOROthiazide [Hydrodiuril] 25 mg PO DAILY 09/10/13 03/06/15 oxyCODONE/ACET 5/325 [Percocet 5 1 tab PO Q6HR 09/10/13 03/06/15 mg/325 mg] Azithromycin [Zithromax] 250 mg PO ONCE #6 tablet 03/06/15 Docusate Sodium 100 mg PO DAILY #30 capsule 02/06/19 Glycerin Adult Supp [Glycerin 1 each DE DAILY PRN #15 supp 02/06/19 Suppository] clindamycin HCL [Cleocin HCl] 300 mg PO Q6H #40 cap 03/16/21 - Allergies Allergies/Adverse Reactions: Allergies Allergy/AdvReac Type Severity Reaction Status Date / Time codeine Allergy Intermediate Itching Verified 08/04/21 16:56 latex Allergy Intermediate Rash Verified 03/19/21 16:56 Penicillins Allergy Intermediate Emesis Verified 03/19/21 16:56 Sulfa (Sulfonamide Allergy Intermediate Emesis Verified 03/19/21 16:56 Antibiotics) eggs Allergy Intermediate Emesis Uncoded 03/19/21 16:56 - Social History Does the pt smoke?: Yes Smoking Status: Current every day smoker Does the pt drink ETOH?: No Does the pt have substance abuse?: No - Immunizations Immunizations are current?: Yes - POLST Patient has POLST: No PD ED PE EXPANDED - Derm Derm: Abscess (Left breast abscess uncovered and a small amount of packing gauze removed with about 2 to 3 cc of purulent drainage coming out. There is a small amount of surrounding erythema on the incision site but otherwise appears to be healing well.) Results - Vitals Vitals: Vital Signs - 24 hr 03/19/21 16:56 Temperature 36.5 C Heart Rate 74 Respiratory 16 Rate Blood Pressure 134/69 H O2 Saturation 97 Oxygen O2 Source Room air PD MEDICAL DECISION MAKING - ED course Complexity details: d/w patient, d/w family ED course: 65-year-old female here for a dressing change and wound evaluation after recent drainage of her left breast abscess. Is currently taking her antibiotics and compliant. Reports improved pain. On exam there is still a small amount of purulent drainage but patient does not tolerate packing and declines this today. I have advised warm compress and dry bandage. Continue the antibiotics. Co ntinue follow-up with breast surgeon. Return to the ER if not improving. Departure - Departure Disposition: 01 Home, Self Care Clinical Impression: Breast abscess Condition: Stable Record reviewed to determine appropriate education?: Yes Comments: Homa the abscess on your breast appears to be healing well. It looks good! 1. Please place a warm washcloth over the abscess without a bandage for 10 minutes at least once a day. 2. Change the outer bandage or gauze once daily. I would expect that you have a small amount of milky yellow or bloody drainage on the bandage daily 3. Your wound will likely take about 2 weeks to heal. Please finish the full prescription of your antibiotics 4. Because this abscess is recurrent it likely means that you have an cyst capsule that needs to be removed. Please call a breast surgeon to arrange follow-up in a few weeks or months time to discuss this. 5. If at any point you have concerns of worsening infection such as increased redness, pain any fevers or increased milky drainage or you feel that the wound is not healing then please return to the ER for a second look
[2021-03-19 18:02] VITALS: BP 96/59
== END 2021-03-19 18:04 | disposition home or self-care (01) ==
LOC: ED 16:43
DX: N61.1 Abscess of the breast and nipple (principal); I10 Essential (primary) hypertension; F17.200 Nicotine dependence, unspecified, uncomplicated; I69.90 Unspecified sequelae of unspecified cerebrovascular disease
CPT/HCPCS: 99281

== ENCOUNTER 2021-07-03 14:39 | Outpatient (CLI) | payer MEDICARE, BC | END 2021-07-03 14:40 | disposition EMS.NT | LOC: EMS 14:39 | DX: Z03.89 Encounter for observation for other suspected diseases and conditions ruled out (principal) ==

== ENCOUNTER 2024-03-14 03:06 | Outpatient (CLI) | payer MEDICARE, BC | END 2024-03-14 23:59 | disposition EMS.NT | LOC: EMS 03:06 | DX: R53.1 Weakness (principal) ==